=== PATIENT | female | born 1970 | race Hispanic/Latino ===

== ENCOUNTER 2018-03-13 09:17 | Observation (INO) | payer OTHER ==
[2018-03-13 09:26] VITALS: BMI 24.4
--- NOTE | 2018-03-13 09:44 | ED PDOC ---
Arrival/HPI - General Historian: Patient - History of Present Illness Narrative History of Present Illness (Text): 03/13/18 09:33 47 y/o female, pmh including htn/hld/lupus/RA/anemia with blood tranfusion from menorrhagia, allergic to codeine, c/o possible blood transfusion. Pt. stated that she is here as she was told that she has low hemoglobin and possibly need blood transfusion. Pt. stated that she has chronic anemia, chronically feels fatigue and cold, seeing assembler cards and announcements Dr. Puente, stated that anemia is chronic for her but sometime that she gets blood transfusion, no fever or chills, no black or dark color stool, no abdominal pain, no night sweat, no rash, no other medical or psychological complaints. Past Medical History - Provider Review Nursing Documentation Reviewed: Yes - Infectious Disease Hx of Infectious Diseases: None - Tetanus Immunization Tetanus Immunization: Unknown - Cardiac Hx Pacemaker: No - Pulmonary Hx Asthma: Yes - Neurological Hx Paralysis: No - HEENT Hx HEENT Disorder: No Other/Comment: glasses - Renal Hx Renal Disorder: No - Endocrine/Metabolic Hx Endocrine Disorders: Yes Hx Systemic Lupus Erythematosus: Yes - Hematological/Oncological Hx Blood Transfusions: Yes (03/2014) Hx Blood Transfusion Reaction: No - Integumentary Hx Dermatological Disorder: No - Musculoskeletal/Rheumatological Hx Musculoskeletal Disorders: Yes (RA; LUPUS) - Gastrointestinal Hx Gastrointestinal Disorders: Yes Other/Comment: reflux - Genitourinary/Gynecological Hx Genitourinary Disorders: Yes Other/Comment: c/o heavy periods - Psychiatric Hx Emotional Abuse: No Hx Physical Abuse: No Hx Substance Use: No - Surgical History Hx Cardiac Catheterization: Yes - Anesthesia Hx Anesthesia Reactions: No Hx Malignant Hyperthermia: No - Suicidal Assessment Feels Threatened In Home Enviroment: No Family/Social History - Physician Review Nursing Documentation Reviewed: Yes Family/Social History: Unknown Family HX Smoking Status: Never Smoked Hx Alcohol Use: No Hx Substance Use: No Hx Substance Use Treatment: No Allergies/Home Meds Allergies/Adverse Reactions: Allergies codeine Allergy (Verified 11/20/15 12:25) Home Medications: Home Meds Medication Instructions Recorded Confirmed Atenolol [Tenormin] 25 mg PO BID 04/30/13 06/28/17 Hydroxychloroquine Sulfate 200 mg PO BID 04/30/13 09/22/16 [Plaquenil] Montelukast [Singulair] 10 mg PO QAM 04/30/13 06/28/17 Atorvastatin [Lipitor] 10 mg PO QPM 05/02/13 09/22/16 Albuterol Sulfate [Proair Hfa] 0.09 mg IH DAILY PRN 02/02/15 06/28/17 Ferrous Sulfate [Feosol] 325 mg PO DAILY 06/28/17 06/28/17 Fluticasone/Vilanterol [Breo 1 each IH DAILY 06/28/17 06/28/17 Ellipta 200-25 Mcg INH] Levocetirizine Dihydrochloride 5 mg PO DAILY 06/28/17 06/28/17 [Xyzal] Multivitamin [Multiple Vitamins] 1 tab PO DAILY 06/28/17 06/28/17 Ranitidine HCl [Acid Gun Welder] 150 mg PO DAILY 06/28/17 06/28/17 hydroCHLOROthiazide [Microzide] 12.5 mg PO DAILY 06/28/17 06/28/17 Review of Systems - Review of Systems Constitutional: absent: Fatigue, Fevers Eyes: absent: Vision Changes ENT: absent: Hearing Changes Respiratory: absent: SOB, Cough Cardiovascular: absent: Chest Pain Gastrointestinal: Other (pt. refused guaiac exam). absent: Abdominal Pain, Diarrhea, Nausea, Vomiting Musculoskeletal: absent: Arthralgias, Back Pain Neurological: absent: Headache, Dizziness Psychiatric: absent: Anxiety, Depression Physical Exam - Systems Exam Head: Present: Atraumatic, Normocephalic Pupils: Present: PERRL Extroacular Muscles: Present: EOMI Conjunctiva: Present: Normal Mouth: Present: Moist Mucous Membranes Neck: Present: Normal Range of Motion Respiratory/Chest: Present: Clear to Auscultation, Good Air Exchange. No: Respiratory Distress, Accessory Muscle Use, Wheezes, Decreased Breath Sounds, Rales, Retracting, Rhonchi, Tachypneic, Tender to Palpation Cardiovascular: Present: Regular Rate and Rhythm, Normal S1, S2. No: Murmurs Abdomen: No: Tenderness, Distention, Peritoneal Signs Back: Present: Normal Inspection Upper Extremity: Present: Normal Inspection. No: Cyanosis, Edema Lower Extremity: Present: Normal Inspection. No: Edema Neurological: Present: GCS=15, CN II-XII Intact, Speech Normal Skin: Present: Warm, Dry, Normal Color. No: Rashes Psychiatric: Present: Alert, Oriented x 3, Normal Insight, Normal Concentration Medical Decision Making ED Course and Treatment: 03/13/18 09:48 -labs -observe and reassess 03/13/18 11:07 -Urine hcg is negative -Labs show no acute findings except hgb 6.6 from 10.0 (2 units of PRBC ordered), K+ 3.4 (potassium chloride 20meq po ordered). -UA show no UTI -Blood consent obtained, agreed to be transfused and admitted. 3 -Pt. refused guaiac -Paging DR. Cohen for admission. 03/13/18 11:38 -EKG: NSR @ 70 BPM, no ST elevation or depression, no T wave inversion. 03/13/18 12:01 -I spoke to Dr. cohen over the phone, discussed about the labs/radiology result, agreed to admit to her service for admission for symptomatic anemia 03/13/18 13:14 -chest xray: 2.6 x 2.9 cm thick-walled cavity in the right upper lobe and 1.5 cm nodular opacity in the right lobe. Findings could be related to infectious/inflammatory or neoplastic etiology. A CT scan of the thorax with intravenous contrast is recommended for further characterization. -Pt. stated that she is awared of this findings, currently seeing Dr. Liz already about this chest xray. - Critical Care Critical Care Minutes: 30 minutes Critical Care Time: Unstable Narrative Critical Care (Text): 03/13/18 11:08 sympatomatic anemia and hgb less than 8, needs blood tranfusion and admission. - RAD Interpretation Radiology Orders: Date of service: 03/13/2018 HISTORY: medical clearance COMPARISON: CT chest with contrast from 11/28/2015. FINDINGS: LUNGS: There is a 2.6 x 2.9 cm thick-walled cavity in the right upper lobe. There is a 1.5 cm nodular opacity in the right upper lobe. There is mild pulmonary hyperinflation and peribronchial cuffing. PLEURA: No pleural effusions or pneumothorax. CARDIOVASCULAR: The heart is normal in size. No aortic atherosclerotic calcification present. OSSEOUS STRUCTURES: Within normal limits for the patient's age. VISUALIZED UPPER ABDOMEN: Normal. OTHER FINDINGS: None. IMPRESSION: 2.6 x 2.9 cm thick-walled cavity in the right upper lobe and 1.5 cm nodular opacity in the right lobe. Findings could be related to infectious/inflammatory or neoplastic etiology. A CT scan of the thorax with intravenous contrast is recommended for further characterization. School Speech Therapist: Radiologist - EKG Interpretation EKG Interpretation (Text): 03/13/18 11:38 -EKG: NSR @ 70 BPM, no ST elevation or depression, no T wave inversion. Interpreted by ED Physician: Yes Type: 12 lead EKG - PA / ENGINEHOUSE BRAKEMAN / Resident Statement MD/DO has reviewed & agrees with the documentation as recorded. Disposition/Present on Arrival - Present on Arrival Any Indicators Present on Arrival: No History of DVT/PE: No History of Uncontrolled Diabetes: No Urinary Catheter: No History of Decub. Ulcer: No History Surgical Site Infection Following: None - Disposition Have Diagnosis and Disposition been Completed?: Yes Diagnosis: Symptomatic anemia, Hypokalemia, Abnormal chest xray Disposition: HOSPITALIZED Disposition Time: 11:08 Patient Plan: Admission, Observation, Telemetry Patient Problems: Current Active Problems Problem Status Onset Symptomatic anemia Acute Hypokalemia Acute Condition: GUARDED
[2018-03-13 10:10] LABS: PH,URINE 6.5 (4.7-8.0); URINE BILIRUBIN NEGATIVE (NEGATIVE); URINE BLOOD NEGATIVE (NEGATIVE); URINE COLOR YELLOW (YELLOW); URINE GLUCOSE (UA) NEGATIVE (NEGATIVE); URINE LEUKOCYTE ESTERASE NEGATIVE Leu/uL (NEGATIVE); URINE PROTEIN NEGATIVE mg/dL (<30 mg/dL); URINE UROBILINOGEN 0.2 E.U./dL (<1 E.U./dL)
[2018-03-13 10:11] LABS: URINE APPEARANCE CLEAR (CLEAR)
[2018-03-13 10:40] LABS: INR 1.03; PARTIAL THROMBOPLASTIN TIME 22.3 Seconds (25.1-36.5); PROTHROMBIN TIME 11.9 SECONDS (9.4-12.5)
[2018-03-13 10:50] LABS: WHITE BLOOD COUNT 7.9 10^3/uL (4.5-11.0)
[2018-03-13 10:51] LABS: HEMOGLOBIN 6.6 g/dL (12.0-16.0)
[2018-03-13 10:52] LABS: MEAN CELL VOLUME 62.3 fl (80.0-105.0); MEAN CORPUSCULAR HEMOGLOBIN 16.5 pg (25.0-35.0); MEAN CORPUSCULAR HGB CONC 26.5 g/dl (31.0-37.0); RED CELL DISTRIBUTION WIDTH 18.9 % (11.5-14.5)
[2018-03-13 10:53] LABS: BASO # 0.09 K/mm3 (0.0-2.0); BASO % 1.1 % (0.0-3.0); EOS # 0.2 (0.0-0.7); EOS % 1.9 % (1.5-5.0); GRAN # 5.01 (1.4-6.5); GRAN % 63.3 % (50.0-68.0); LYMPH % 25.5 % (22.0-35.0); MEAN PLATELET VOLUME 8.4 fl (7.0-11.0); MONO # 0.7 (0.1-0.6); MONO % 8.2 % (1.0-6.0)
[2018-03-13 11:04] LABS: ALB/GLOB RATIO 0.9 (1.1-1.8); ALBUMIN 3.2 g/dL (3.0-4.8); ALT/SGPT 37 U/L (7-56); AST/SGOT 30 U/L (14-36); BLOOD UREA NITROGEN 8 mg/dL (7-21); CALCIUM 8.4 mg/dL (8.4-10.5); GFR NON-AFRICAN AMERICAN > 60
[2018-03-13] MEDS ORDERED: Potassium Chloride 20 mEq ER Tab PO STA (12:24)
--- NOTE | 2018-03-13 13:08 | RAD ---
Date of service: 03/13/2018 HISTORY: medical clearance COMPARISON: CT chest with contrast from 11/28/2015. FINDINGS: LUNGS: There is a 2.6 x 2.9 cm thick-walled cavity in the right upper lobe. There is a 1.5 cm nodular opacity in the right upper lobe. There is mild pulmonary hyperinflation and peribronchial cuffing. PLEURA: No pleural effusions or pneumothorax. CARDIOVASCULAR: The heart is normal in size. No aortic atherosclerotic calcification present. OSSEOUS STRUCTURES: Within normal limits for the patient's age. VISUALIZED UPPER ABDOMEN: Normal. OTHER FINDINGS: None. IMPRESSION: 2.6 x 2.9 cm thick-walled cavity in the right upper lobe and 1.5 cm nodular opacity in the right lobe. Findings could be related to infectious/inflammatory or neoplastic etiology. A CT scan of the thorax with intravenous contrast is recommended for further characterization. The final report is tagged to the PA review folder and copied in the ER physician note.
[2018-03-13] MEDS ORDERED: Pneumococcal 23-Valent Vaccine IM ONE (15:21)
[2018-03-13] MEDS ORDERED: Influenza Vaccine 60 mcg/0.5 mL SYR (4YR UP) IM ONE (15:21)
[2018-03-13] MEDS ORDERED: Albuterol HFA 90 mcg/actuation (8 g) IH PRN (17:01)
[2018-03-13] MEDS: Pantoprazole 40 mg EC Tab PO SCH (17:49)
[2018-03-13] MEDS: FLUTICASONE IH SCH (18:28)
[2018-03-13] MEDS: VILANTEROL IH SCH (18:28)
--- NOTE | 2018-03-13 18:44 | CARD ---
APPROVED REPORT Date of service: 03/13/2018 EKG Measurement Heart [id number] <Conclusion> Normal sinus rhythm Normal ECG
[2018-03-13] MEDS ORDERED: Albuterol 0.5% Inhal Sol (2.5 mg/0.5 ml) UD IH SCH (20:00)
--- NOTE | 2018-03-14 00:49 | HP ---
DATE OF EXAM: 03/13/2018 Patient was seen and examined at the bedside on 03/13/2018. CHIEF COMPLAINT: Fatigue, abnormal labs. HISTORY OF PRESENT ILLNESS: Ms. Trena Keita, 47-year-old female, with past medical history of hypertension, hypercholesterolemia, lupus, rheumatoid arthritis, anemia, abnormal menstruation, history of blood transfusion for menorrhagia, ALLERGIC TO CODEINE, came in to [facility] Emergency Room for possible blood transfusion. Actually, patient was seen in my office a couple of days ago, feeling fatigued and tired, sent for blood test, and it shows hemoglobin is 6.6. Then, we called the patient that hemoglobin is low and she has to go to the hospital. She came, still feeling fatigued and tired, already got 1 unit of packed RBC, is getting the other one, tolerating blood transfusion very well. PAST MEDICAL HISTORY: As above, hypertension, hypercholesterolemia, lupus, rheumatoid arthritis, anemia, menorrhagia, history of asthma, systemic lupus erythematosus, multiple time blood transfusion, GERD, dyspepsia, history of palpitation, getting metoprolol for that. HABITS: Never smoked. No drugs. No ethanol. FAMILY HISTORY: Father and mother noncontributory. ALLERGIES: PATIENT IS ALLERGIC TO CODEINE. HOME MEDICATIONS: Tenormin, Plaquenil, Singulair, Lipitor, iron sulfate, Xyzal. REVIEW OF SYSTEMS: Patient was seen and examined by bedside in her room. Getting 2nd unit of packed RBC. No visual changes. No hearing changes. Still feeling fatigued and tired. No cough. No shortness of breath. No abdominal pain. No hematuria. No hematochezia. Complaining of heavy menstruation from couple of months, sometimes getting anxious. PHYSICAL EXAMINATION VITAL SIGNS: Temperature 99.7, pulse 77, blood pressure 105/58, respiratory rate 19. HEENT: Head: Normocephalic, atraumatic. Eyes: PERRLA. Extraocular muscles are intact. Conjunctivae clear. Nose patent. Mucous membranes moist. NECK: Supple. No carotid bruit. No JVD or thyromegaly. CHEST: Bilaterally symmetrical. HEART: S1 and S2 positive. LUNGS: Clear to auscultation. ABDOMEN: Soft. Bowel sounds present. No organomegaly. EXTREMITIES: No edema. No cyanosis. NEUROLOGICAL: Patient is awake, alert. Moving all 4 extremities. No focal deficit. LABORATORY DATA: White blood 7.9, hemoglobin 6.6, hematocrit 24.9, platelets noted . Sodium 139, potassium 3.4, BUN 8, creatinine 0.6, random glucose 135. AST 37. ASSESSMENT AND PLAN: Ms. Trena Keita, 47-year-old female, has acute on chronic anemia, thrombocytosis, hypokalemia, hyperchloremia, hyperglycemia, has history of fatigue, tired, history of lupus. Electrocardiography done. Chest x-ray done, reviewed by me. There is a 2.6 x 2.9 cm thick-walled cavity in the right upper lobe and 1.5 cm nodular opacity in the right lobe. Finding could be related to the infectious, inflammatory, or neoplastic etiology. A CAT scan of the thorax with intravenous contrast is recommended for further characterization. We will do CAT scan of the chest, and we will call Pulmonary consult. Patient has history of hypertension, rheumatoid arthritis, menorrhagia, multiple time blood transfusion. According to patient, from couple of months, she has heavy menstruation. Her Obstetrics and Gynecology is Dr. Russell. She spoke to Dr. Russell. He sent patient to Dr. Tong Shaffer for some type of ovarian procedure, but she is not sure about that. I offered her that I will call Obstetrics and Gynecology here and we will take care of that, but patient refused that. She said she will go back to Dr. Russell and to Dr. Tong Shaffer to take care of that problem, but I will call Pulmonary consult, and we will do CAT scan of the chest to make sure about the cavity. Meanwhile, continue present treatment. Repeat labs. We will follow up. Tania Cohen MD MTDReny
[2018-03-14] MEDS: Albuterol 0.5% Inhal Sol (2.5 mg/0.5 ml) UD IH SCH ×4 (02:45→19:54)
[2018-03-14 06:24] LABS: MEAN CORPUSCULAR HEMOGLOBIN 20.1 pg (25.0-35.0); MEAN CORPUSCULAR HGB CONC 29.7 g/dl (31.0-37.0); MEAN PLATELET VOLUME 8.6 fl (7.0-11.0); RBC 4.68 10^6/uL (3.5-6.1); RED CELL DISTRIBUTION WIDTH 23.5 % (11.5-14.5); WHITE BLOOD COUNT 11.3 10^3/uL (4.5-11.0)
[2018-03-14 06:28] LABS: HEMOGLOBIN 9.4 g/dL (12.0-16.0); MEAN CELL VOLUME 67.7 fl (80.0-105.0)
[2018-03-14 06:44] LABS: IRON 66 ug/dL (45-180)
[2018-03-14 06:53] LABS: % IRON SATURATION 15 % (20-55); BLOOD UREA NITROGEN 8 mg/dL (7-21); CALCIUM 8.4 mg/dL (8.4-10.5); GFR NON-AFRICAN AMERICAN > 60; TOTAL IRON BINDING CAPACITY 432 ug/dL (265-497)
[2018-03-14] MEDS ORDERED: NORETHINDRONE PO SCH (07:00)
[2018-03-14] MEDS ORDERED: FERROUS FUMARATE PO SCH (07:00)
[2018-03-14] MEDS ORDERED: ETHINYL ESTRADIOL PO SCH (07:00)
[2018-03-14] MEDS ORDERED: Iohexol 300 100 ML IJ ONE (07:24)
[2018-03-14 07:49] VITALS: RESP 20
[2018-03-14] MEDS: VILANTEROL IH SCH (09:25)
[2018-03-14] MEDS: FLUTICASONE IH SCH (09:25)
[2018-03-14] MEDS: Pantoprazole 40 mg EC Tab PO SCH ×2 (09:27→18:43)
[2018-03-14] MEDS ORDERED: NORETHINDRONE AC ETH ESTRADIOL PO SCH (10:00)
[2018-03-14] MEDS ORDERED: Non Formulary Medication (Levocetirizine Dihydrochloride [Xyzal] 5 MG) PO SCH (10:00)
[2018-03-14] MEDS ORDERED: MULTIVITAMIN PO SCH (10:00)
[2018-03-14] MEDS ORDERED: Multivitamin Therapeutic Tab PO SCH (10:00)
[2018-03-14 13:25] LABS: FOLATE > 20.0 ng/mL
--- NOTE | 2018-03-14 13:43 | CT ---
Date of service: 03/14/2018 PROCEDURE: CT Chest with contrast HISTORY: ab.chest xray,horacio cat scane on thorax with i/vcon COMPARISON: 03/13/2018 single-view chest. 11/29/2015 CT thorax TECHNIQUE: Contiguous axial images were obtained through the chest with intravenous contrast enhancement. Sagittal and coronal reconstructions were performed. IV contrast: 100 cc Omnipaque 300 Radiation dose: Total exam DLP = 246.6 mGy-cm. This CT exam was performed using one or more of the following dose reduction techniques: Automated exposure control, adjustment of the mA and/or kV according to patient size, and/or use of iterative reconstruction technique. FINDINGS: LUNGS: The CT correlate to findings on recent chest radiograph is a thick walled cavity in the right upper lobe measuring 2.5 x 3 cm. Additional smaller cavitary masses identified. Additional non cavitary pulmonary nodules noted. Multiple cavitary and non cavitary pulmonary nodules were seen on the prior study. Currently the number and size of pulmonary nodules has increased bilaterally. MEDIASTINUM: Unremarkable thoracic aorta. No aneurysm or dissection. Normal sized heart. Main pulmonary artery unremarkable. No vascular congestion. No lymphadenopathy. No aortic atherosclerotic calcification or mural plaque present. PLEURA: No pleural fluid. No pneumothorax. BONES: No fracture. No destructive lesion. UPPER ABDOMEN: Grossly unremarkable. OTHER FINDINGS: None. IMPRESSION: Dominant right upper lobe cavitary mass confirms findings on recent chest radiograph. More numerous primarily non cavitary pulmonary nodules compared to the prior CT 11/28/2015.
[2018-03-14 16:40] VITALS: BP 118/68; TEMP 98.9; O2SAT 99
--- NOTE | 2018-03-14 17:08 | CON ---
DATE: 03/14/2018 PULMONARY CONSULT REFERRING PHYSICIAN: Tania Cohen MD REASON FOR CONSULT: Symptomatic anemia, asthma, lung nodule. HISTORY OF PRESENT ILLNESS: This is a 47-year-old female with past medical history of hypertension, hypercholesterolemia, lupus, rheumatoid arthritis, anemia, abnormal menstruation; also has a history of blood transfusion for menorrhagia. The patient presented to the emergency room for blood transfusion, tolerated blood transfusion well. Chest x-ray was done, which showed 2.6 x 2.9 cm thick-walled cavity in the right upper lobe and 1.5 cm nodular opacity in the right lobe. The patient reports that she is being followed by weigh tank operator and has been followed by weigh tank operator for nodule in lung before. CT scan from 2016 reviewed and showed similar nodule present with multiple other nodules at that time. PAST MEDICAL HISTORY: As mentioned above in HPI. ALLERGIES: CODEINE. SOCIAL HISTORY: Never smoked. No ETOH. FAMILY HISTORY: No cardiopulmonary diseases. MEDICATIONS: Reviewed. Albuterol 2.5 mg inhalation every 6 hours, atenolol 25 mg twice a day, vitamin B12 a 1000 mcg IM daily, folic acid 1 mg daily, hydrochlorothiazide 12.5 mg daily, Plaquenil 200 mg twice a day, iron sucrose 100 mg daily, Claritin 10 mg daily, Singulair 10 mg in the morning, multivitamin one tablet daily, Breo inhaler daily, and Protonix 40 mg twice a day. PHYSICAL EXAMINATION: VITAL SIGNS: Blood pressure 116/64, pulse 65, temperature 98.1, oxygen saturation 98% on room air. GENERAL: In no acute distress. HEENT: Moist mucous membranes. NECK: Supple. No JVD. CHEST: Clear bilaterally. CARDIOVASCULAR: S1, S2 audible. ABDOMEN: Soft. No distention. Nontender. No organomegaly. EXTREMITIES: No edema bilaterally. NEUROLOGIC: The patient is awake, alert, verbally responsive, able to follow commands. LABORATORY DATA: Reviewed. WBC 11.3, hemoglobin 9.4, hematocrit 31.7, and platelets 533. PT 11.9, INR 1.03, APTT 22.3. Sodium 137, potassium 3.4, chloride 107, carbon dioxide 25, anion gap 9, BUN 8, creatinine 0.7, GFR greater than 60, random glucose 72, calcium 8.4, iron 66, TIBC 432, percent saturation 13. TSH 2.24. UA negative. Chest x-ray: 2.6 x 2.9 cm thick-walled cavity in the right upper lobe and 1.5 cm nodule opacity in the right lobe. Electrocardiogram: normal sinus rhythm. IMPRESSION AND PLAN: Chronic anemia, thrombocytosis, hypokalemia, history of lupus, hyperchloremia, hypoglycemia, asthma. The patient noted with thick-walled cavity in the right upper lobe, nodular opacity in the right lobe, which seems to have improved from CT scan in 2016. Pulmonary point of view: recommend Full PFT as outpatient, continue inhaled bronchodilators, recommend follow-up CT scan as outpatient. We will follow up when chest CT scan report when available. Gastric prophylaxis. Continue leukotriene inhibitors, antihistamine. This patient was seen and examined with Dr. Duong. Discussed the assessment and plan as described above. Thank you for this consult, and we will follow with you. Elliot Lopez APN Lizzy Duong MD MTDD
[2018-03-14 20:06] VITALS: PULSE 65
--- NOTE | 2018-03-21 14:40 | PQF ---
PROVIDER RESPONSE TEXT: Moderate persistent REVIEWER QUERY TEXT: Asthma Specificity and Type Asthma is documented in the Medical Record. Please specify the type and severity of asthma and indic ate if this is associated with exacerbation or status asthmaticus. Such as: -- Mild intermittent -- Mild persistent -- Moderate persistent -- Severe persistent -- Exercise induced bronchospasm -- Cough variant asthma -- Other, please specify The patient's Clinical Indicators include: Please see below. Patient treated with albuterol. Thank you. Query created by: Marge Valdez on 03/16/2018 9:22 AM Electronically signed by: Lizzy uDong MD 03/21/2018 2:36 PM
== END 2018-03-14 21:47 | disposition home or self-care (01) ==
LOC: ED 09:17 → ERH 11:59 → 3RSO 14:18
PROVIDERS: ADMIT Internal Medicine; ATTEND Internal Medicine
DX: J45.40 Moderate persistent asthma, uncomplicated (principal); D64.9 Anemia, unspecified; E78.00 Pure hypercholesterolemia, unspecified; E78.5 Hyperlipidemia, unspecified; E87.6 Hypokalemia; E87.8 Other disorders of electrolyte and fluid balance, not elsewhere classified; I10 Essential (primary) hypertension; K21.9 Gastro-esophageal reflux disease without esophagitis; M06.9 Rheumatoid arthritis, unspecified; M32.9 Systemic lupus erythematosus, unspecified; Z88.5 Allergy status to narcotic agent; E16.2 Hypoglycemia, unspecified
CPT/HCPCS: 36415; 36430; 71045; 71260; 80048; 80053; 81003; 82607; 82746; 83540; 83550; 84443; 84703; 85025; 85027; 85610; 85730; 86850; 86900; 86920; 93005; 96365; 96372; 99282; G0378; J1756; J3420; P9016; Q9967